=== PATIENT | female | born 1995 | race Caucasian/White ===

== ENCOUNTER → 2020-06-20 | Outpatient (REF) | payer OTHER ==
[2020-06-20 14:29] LABS: HEMATOCRIT 40.6 % (36.0-47.0); HEMOGLOBIN 13.6 g/dl (12.0-15.5); MEAN CORPUSCULAR HEMOGLOBIN 30.4 pg (27.0-33.0); MEAN CORPUSCULAR HGB CONC 33.5 g/dl (32.0-36.5); MEAN CORPUSCULAR VOLUME 90.6 fl (80.0-96.0); PLATELET COUNT, AUTOMATED 217 10^3/uL (150-450); RED BLOOD COUNT 4.48 10^6/uL (4.00-5.40); WHITE BLOOD COUNT 9.6 10^3/uL (4.0-10.0)
[2020-06-20 15:55] LABS: HEPATITIS C VIRUS ABY INDEX 0.1 INDEX (<0.8); HIV 1&2 SCREEN CENTAUR NEGATIVE (NEGATIVE)
[2020-06-20 16:14] LABS: CHLAMYDIA DNA AMPLIFICATION NEGATIVE (NEGATIVE); GC DNA AMPLIFICATION NEGATIVE (NEGATIVE)
== END ==
LOC: M PLALAB 09:38
PROVIDERS: ATTEND Advanced Practice Midwife
DX: Z34.02 Encounter for supervision of normal first pregnancy, second trimester (principal); Z3A.00 Weeks of gestation of pregnancy not specified

== ENCOUNTER → 2020-07-09 | Outpatient (CLI) | payer OTHER ==
--- NOTE | 2020-07-09 16:06 | REP ---
INDICATION: ANATOMY. COMPARISON: None TECHNIQUE: Real-time sonographic evaluation of the gravid uterus performed. FINDINGS: Estimated gestational age is18 weeks 6 days, EDC 12/04/2020. Today's measurements indicate appropriate growth. Presentation: Cephalic Placenta anterior, grade 1, without evidence of placenta previa. heart rate is recorded at 149 beats per minute. Amniotic fluid is subjectively normal. Closed cervical length is measured at 3.3 cm. Biometry chart: BPD: 45 mm, 19 weeks 4 days, 67th percentile. HC: 161 mm, 18 weeks 6 days, 51st percentile AC: 130 mm, 18 weeks 4 days, 44th percentile Femur length: 28 mm, 18 weeks 4 days, 43rd percentile HC to AC ratio: 1.23, normal range 1.07-1.26. Estimated weight: 250g, 33rd percentile. anatomy: Cranium: Grossly normal Lateral Ventricles/Choroid Plexus: Grossly normal Posterior Fossa/Cerebellum: Grossly normal Nose/lips/profile: Grossly normal Four chamber heart: Grossly normal Right ventricular outflow tract: Grossly normal Left ventricular outflow tract: Grossly normal Left-sided stomach: Grossly normal Kidneys: Grossly normal Bladder: Grossly normal Cord Insertion: Grossly normal 3 vessel cord: Grossly normal Spine: Not well seen due to position. IMPRESSION: Viable single intrauterine gestation as above. Spine is not well seen due to position. <Electronically signed by Eulalio Kan > 07/09/20 [id number]
== END ==
LOC: M WHC 14:20
PROVIDERS: ATTEND Advanced Practice Midwife
DX: Z34.02 Encounter for supervision of normal first pregnancy, second trimester (principal); Z3A.18 18 weeks gestation of pregnancy

== ENCOUNTER → 2020-08-06 | Outpatient (REF) | payer OTHER | LOC: M SFHCWAGY 13:30 | PROVIDERS: ATTEND Advanced Practice Midwife | DX: Z36.89 Encounter for other specified antenatal screening (principal); Z3A.22 22 weeks gestation of pregnancy ==

== ENCOUNTER → 2020-08-15 | Outpatient (CLI) | payer OTHER ==
--- NOTE | 2020-08-15 08:18 | REP ---
INDICATION: F/U ANATOMY COMPARISON: 07/09/2020 TECHNIQUE: Transabdominal obstetrical ultrasound with color Doppler evaluation. FINDINGS: Examination demonstrates a single live intrauterine in transverse (head to maternal right) presentation. motion is identified by technologist. Placenta is noted anterior and grade 0 without evidence for placenta previa or abruption. Amniotic fluid volume is normal. Cervix measures 3.0 cm in length and appears closed. Marginal cord insertion on the placenta noted.. Gestational age by LMP and 1st U/S 24 weeks 1 day with TWYLA 12/04/2020. Gestational age by current measurements 24 weeks 1 day with TWYLA 12/04/2020. FHR equals 138 beats per minute. Estimated weight 658 grams (38thpercentile). Anatomical assessment demonstrates normal structures including facial profile, diaphragm, stomach, kidneys/bladder, spine, and three-vessel cord. IMPRESSION: Single live intrauterine in transverse lie demonstrating appropriate interval growth. In conjunction with prior examination anatomical assessment is complete and normal. <Electronically signed by Kaleb Martins > 08/15/20 [id number]
== END ==
LOC: M WHC 07:23
PROVIDERS: ATTEND Advanced Practice Midwife
DX: Z36.89 Encounter for other specified antenatal screening (principal); Z3A.24 24 weeks gestation of pregnancy

== ENCOUNTER → 2020-09-11 | Outpatient (REF) | payer OTHER ==
[2020-09-11 13:25] LABS: HEMATOCRIT 39.9 % (36.0-47.0); MEAN CORPUSCULAR HEMOGLOBIN 31.1 pg (27.0-33.0); MEAN CORPUSCULAR HGB CONC 32.6 g/dl (32.0-36.5); MEAN CORPUSCULAR VOLUME 95.5 fl (80.0-96.0); PLATELET COUNT, AUTOMATED 199 10^3/uL (150-450); RED BLOOD COUNT 4.18 10^6/uL (4.00-5.40); WHITE BLOOD COUNT 11.6 10^3/uL (4.0-10.0)
== END ==
LOC: M PLALAB 09:40
PROVIDERS: ATTEND Advanced Practice Midwife
DX: Z36.89 Encounter for other specified antenatal screening (principal)

== ENCOUNTER → 2020-10-31 | Outpatient (CLI) | payer OTHER ==
--- NOTE | 2020-10-31 16:13 | REP ---
INDICATION: MARGINAL CORD INSERTION. COMPARISON: Comparison study August 15, 2020.. TECHNIQUE: Transabdominal and transvaginal scanning or performed. Limited study. FINDINGS: Scanning demonstrates a single living intrauterine gestation in a cephalic lie. heart rate is recorded at 158 beats per minute. Anterior grade 1 placenta is seen without evidence of previa. Amniotic fluid is subjectively normal. NORMAN is normal at 18.8 cm. Closed cervical length is 3.1 cm measured transvaginally. Placental cord insertion is now normal, no longer marginal. IMPRESSION: Limited obstetric sonography. There is no longer evidence of a marginal umbilical cord insertion on the placenta. <Electronically signed by Landon Rahman > 10/31/20 [id number]
== END ==
LOC: M WHC 14:10
PROVIDERS: ATTEND Specialist
DX: Z34.03 Encounter for supervision of normal first pregnancy, third trimester (principal)

== ENCOUNTER 2020-11-29 14:09 | Outpatient (CLI) | payer OTHER ==
[~2020-11-29] VITALS: Ht 162.6 cm; Wt 96.5 kg
[2020-11-29] VITALS (7 sets, daily range): BP systolic 118–133; BP diastolic 61–79
[2020-11-29] MEDS ORDERED: STUACAP PO (14:49)
[2020-11-29] MEDS ORDERED: ACET-907 PO (14:50)
[2020-11-29 15:20] LABS: HEMATOCRIT 36.1 % (36.0-47.0); HEMOGLOBIN 11.9 g/dl (12.0-15.5); PLATELET COUNT, AUTOMATED 176 10^3/uL (150-450); WHITE BLOOD COUNT 10.5 10^3/uL (4.0-10.0)
[2020-11-29 15:42] LABS: ALT/SGPT 19 U/L (12-78); BILIRUBIN,TOTAL 0.8 MG/DL (0.2-1.0); CREATININE FOR GFR 0.51 MG/DL (0.55-1.30); GLOMERULAR FILTRATION RATE > 60.0 (>60); LDH LACTATE DEHYDROGENASE 163 U/L (84-246); URIC ACID 5.3 MG/DL (2.6-6.0)
--- NOTE | 2020-11-29 16:22 | IPNPDOC ---
Text Note Date of Service The patient was seen on 11/29/20. NOTE Outpatient 25yo G1 TWYLA 12/04/2020. Currently 39w2d, sent from office for blood pressure workup. Denies headaches, visual disturbances, chest pain, LOF, bleeding or regular UC. Reports good movement. No distress Normotensive, afebrile Cat I tracing. Labs WNL, P/C ratio 0.22 Dr Rodriguez informed. May be discharged home. RTO Wednesday for BP check S/S preE, Labor, warnings reviewed. VS,Fishbone, I+O VS, Fishbone, I+O Laboratory Tests 11/29/20 15:09 Vital Signs Date Time Temp Pulse Resp B/P (MAP) Pulse Ox O2 Delivery O2 Flow Rate FiO2 11/29/20 15:55 103 118/79 (92) 11/29/20 14:35 98.4 18 Room Air Eliza Beltrán CNM Nov 29, 2020 16:21
== END 2020-11-29 16:25 | disposition home or self-care (01) ==
LOC: M LDO 14:09
PROVIDERS: ATTEND Advanced Practice Midwife
DX: O26.893 Other specified pregnancy related conditions, third trimester (principal); Z3A.39 39 weeks gestation of pregnancy; R03.0 Elevated blood-pressure reading, without diagnosis of hypertension
CPT/HCPCS: 36415; 59025; 82247; 82565; 82570; 83615; 84156; 84450; 84460; 84550; 85027; G0378; G0463

== ENCOUNTER 2020-12-06 14:45 | Inpatient (IN) | payer OTHER ==
[2020-12-06] VITALS (19 sets, daily range): BP systolic 113–161; BP diastolic 57–92
[~2020-12-06] VITALS: Ht 162.6 cm; Wt 96.2 kg
[~2020-12-06 14:45] MED LIST: ACET-907 PO; STUACAP PO
[2020-12-06] MEDS ORDERED: PENICILLIN G POTASSIUM IV 5 MU in D5W MINI-BAG PLUS 100 ML IV STA (15:11)
[2020-12-06] MEDS ORDERED: LACTATED RINGER'S 1000 ML IV STA (15:11)
[2020-12-06] MEDS ORDERED: OXYTOCIN DRIP 30 UNITS in IV 1 EA IV PRN (15:15)
[2020-12-06] MEDS ORDERED: METHYLERGONOVINE MALEATE 0.2 MG/ML VIAL (J2210) IM PRN (15:15)
[2020-12-06] MEDS ORDERED: LIDOCAINE 1% MDV 20ML VIAL INFIL PRN (15:15)
[2020-12-06 15:36] LABS: HEMATOCRIT 38.3 % (36.0-47.0); HEMOGLOBIN 12.7 g/dl (12.0-15.5); MEAN CORPUSCULAR HEMOGLOBIN 29.2 pg (27.0-33.0); MEAN CORPUSCULAR HGB CONC 33.2 g/dl (32.0-36.5); PLATELET COUNT, AUTOMATED 197 10^3/uL (150-450); RED BLOOD COUNT 4.35 10^6/uL (4.00-5.40); WHITE BLOOD COUNT 14.5 10^3/uL (4.0-10.0)
[2020-12-06] MEDS: LR 1,000 ML IV SCH ×2 (15:39→23:59)
[2020-12-06] MEDS ORDERED: LR 1,000 ML IV SCH (17:20)
[2020-12-06] MEDS ORDERED: OXYTOCIN DRIP 30 UNITS in IV 1 EA IV SCH (19:00)
[2020-12-06] MEDS: PENICILLIN G POTASSIUM IV 2.5 MU in IV 1 EA IV SCH ×2 (19:43→23:58)
[2020-12-06] MEDS ORDERED: FENTANYL 2MCG/ML ROPIVACAINE 0.2% IN 0.9% NACL 100ML IVBAG As Ordered ONE (21:29)
[2020-12-06] MEDS ORDERED: ePHEDrine SULFATE 25 MG/5 ML(5MG/ML) SYRINGE IV PRN (22:50)
[2020-12-06] MEDS ORDERED: ONDANSETRON 4MG/2ML VIAL IV PRN (22:50)
[2020-12-06] MEDS ORDERED: REFRIGERATOR IV KEYS XX PRN (22:50)
[2020-12-06] MEDS ORDERED: LACTATED RINGER'S 1000 ML IV PRN (22:50)
[2020-12-06] MEDS ORDERED: NALOXONE INJ 0.4MG/1ML VIAL (J2310 PER 1MG) IV PRN (22:50)
[2020-12-06] MEDS ORDERED: diphenhydrAMINE 50MG/ML VIAL (J1200) IV PRN (22:50)
[2020-12-06] MEDS ORDERED: EPIDURAL/PCA KEYS XX PRN (22:50)
[2020-12-06] MEDS ORDERED: EPIDURAL COMMENT XX SCH (22:50)
[2020-12-06] MEDS ORDERED: FENTANYL/ROPIVACAINE/NACL BAG 100 ML EPIDURAL SCH (22:50)
[2020-12-07] VITALS (13 sets, daily range): BP systolic 113–133; BP diastolic 55–80
[2020-12-07] MEDS ORDERED: ACETAMINOPHEN 500 MG TAB PO ONE (02:05)
[2020-12-07] MEDS ORDERED: DOCUSATE SODIUM 100MG CAPSULE PO PRN (02:50)
[2020-12-07] MEDS ORDERED: ANUSOL HC CREAM 30GM TOP PRN (02:50)
[2020-12-07] MEDS ORDERED: ACETAMINOPHEN 500 MG TAB PO PRN (02:50)
[2020-12-07] MEDS ORDERED: ACETAMINOPHEN TAB 650MG DOSE (2X325MG) PO PRN (02:50)
[2020-12-07] MEDS ORDERED: METHYLERGONOVINE MALEATE 0.2 MG TAB PO PRN (02:50)
[2020-12-07] MEDS ORDERED: DIBUCAINE 1% OINTMENT 30GM TOP PRN (02:50)
[2020-12-07] MEDS ORDERED: MEASLES,MUMPS,RUBELLA VACCINE INJ (MMR-II) (90707) SC SCH (02:50)
[2020-12-07] MEDS ORDERED: RHOGAM 300 MCG (1500 IU) INJ (J2790) IM SCH (02:50)
[2020-12-07] MEDS ORDERED: OXYTOCIN DRIP 30 UNITS in IV 1 EA IV SCH (02:50)
[2020-12-07] MEDS ORDERED: MOM 30ML SUSPENSION UDC PO PRN (02:50)
[2020-12-07] MEDS ORDERED: IBUPROFEN 600MG TAB PO PRN (02:50)
[2020-12-07 03:00] LABS: CORD GAS ABE A -7.9; CORD GAS HCO3 A 18.5 MEQ/L; CORD GAS O2 SAT A 42.7 %; CORD GAS PCO2 A 40.9 mmHg; CORD GAS PH A 7.273 UNITS; CORD GAS PO2 A 19.7 mmHg; CORD GAS SBC A 16.9 MEQ/L; CORD GAS TCO2 A 19.7 MEQ/L
[2020-12-07 03:02] LABS: CORD GAS ABE V -7.3; CORD GAS HCO3 V 19.1 MEQ/L; CORD GAS PCO2 V 41.7 mmHg; CORD GAS PH V 7.279 UNITS; CORD GAS PO2 V 19.6 mmHg; CORD GAS SBC V 17.3 MEQ/L; CORD GAS TCO2 V 20.4 MEQ/L
[2020-12-07] MEDS: PRENATAL VITAMINS CHEWABLE TABLET PO SCH (08:08)
[2020-12-08] MEDS: IBUPROFEN 800 MG TAB PO PRN ×2 (04:36→13:00)
[2020-12-08 06:00] VITALS: BP 120/68
[2020-12-08] MEDS: PRENATAL VITAMINS CHEWABLE TABLET PO SCH (08:58)
[2020-12-08 18:00] VITALS: BP 137/84
[2020-12-09 06:00] VITALS: BP 126/87
[2020-12-09] MEDS ORDERED: IBUP80TA PO (08:18)
[2020-12-09] MEDS ORDERED: DOK1CAP4 PO (08:18)
[2020-12-09] MEDS: PRENATAL VITAMINS CHEWABLE TABLET PO SCH (09:09)
== END 2020-12-09 10:45 | disposition home or self-care (01) | DRG 807 ==
LOC: M LDO 14:45 → M LDI 15:14 → M OBS 12-07 05:30
PROVIDERS: ADMIT Advanced Practice Midwife; ATTEND Advanced Practice Midwife
PROC: 10E0XZZ Delivery of Products of Conception, External Approach (ICD-10-PCS; principal; 2020-12-07)
PROC: 0HQ9XZZ Repair Perineum Skin, External Approach (ICD-10-PCS; 2020-12-07)
DX: O48.0 Post-term pregnancy (principal); Z37.0 Single live birth; Z3A.40 40 weeks gestation of pregnancy; O99.824 Streptococcus B carrier state complicating childbirth; O64.5XX0 Obstructed labor due to compound presentation, not applicable or unspecified; O77.0 Labor and delivery complicated by meconium in amniotic fluid; O70.0 First degree perineal laceration during delivery

== ENCOUNTER 2020-12-31 16:26 | Emergency (ER) | payer OTHER ==
[~2020-12-31] VITALS: Ht 162.6 cm; Wt 83.0 kg
[~2020-12-31 16:26] MED LIST changes: +DOK1CAP4 PO; +IBUP80TA PO
[2020-12-31 18:40] LABS: BASO % 0.4 % (0.0-1.0); EOS # 0.1 10^3/uL (0.0-0.5); EOS % 1.3 % (0.0-3.0); HEMATOCRIT 42.1 % (36.0-47.0); HEMOGLOBIN 13.5 g/dl (12.0-15.5); LYMPH # 2.5 10^3/uL (1.5-5.0); LYMPH % 26.9 % (24.0-44.0); MEAN CORPUSCULAR HEMOGLOBIN 28.6 pg (27.0-33.0); MEAN CORPUSCULAR HGB CONC 32.1 g/dl (32.0-36.5); MEAN CORPUSCULAR VOLUME 89.2 fl (80.0-96.0); MONO # 0.7 10^3/uL (0.0-0.8); MONO % 8.1 % (2.0-8.0); NEUTROPHILS # 5.7 10^3/uL (1.5-8.5); PLATELET COUNT, AUTOMATED 250 10^3/uL (150-450); RED BLOOD COUNT 4.72 10^6/uL (4.00-5.40); WHITE BLOOD COUNT 9.1 10^3/uL (4.0-10.0)
[2020-12-31] MEDS ORDERED: MAALOX 30 ML SUSP *UDC PO ONE (18:40)
[2020-12-31] MEDS ORDERED: LIDOCAINE VISCOUS 2% SOLN 15ML UDC SS ONE (18:40)
[2020-12-31 19:02] LABS: ALBUMIN 3.6 GM/DL (3.2-5.2); ALT/SGPT 298 U/L (12-78); BILIRUBIN,DIRECT 1.2 MG/DL (0.0-0.2); BILIRUBIN,TOTAL 2.5 MG/DL (0.2-1.0); BLOOD UREA NITROGEN 12 MG/DL (7-18); CALCIUM LEVEL 9.8 MG/DL (8.5-10.1); CARBON DIOXIDE LEVEL 27 MEQ/L (21-32); CHLORIDE LEVEL 108 MEQ/L (98-107); CREATININE FOR GFR 0.76 MG/DL (0.55-1.30); GLOMERULAR FILTRATION RATE > 60.0 (>60); GLUCOSE, FASTING 92 MG/DL (70-100); LIPASE 133 U/L (73-393); SODIUM LEVEL 138 MEQ/L (136-145); TOTAL PROTEIN 6.7 GM/DL (6.4-8.2)
[2020-12-31 19:22] LABS: CK-MB VALUE MASS < 1.0 NG/ML (<3.6); CPK CREATINE PHOSPHOKINASE 63 U/L (26-192); MB/CK RELATIVE INDEX 1.59 (< OR =4); TROPONIN I 0.04 NG/ML (< 0.10)
--- NOTE | 2020-12-31 19:45 | REP ---
INDICATION: biliary colic COMPARISON: None. TECHNIQUE: Real time faye scale ultrasound examination using curved array transducer. FINDINGS: Liver and pancreas are normal in contour, size, and echogenicity without focal hepatic or obvious pancreatic lesions identified. The gallbladder demonstrates multiple mobile gallstones without wall thickening, or pericholecystic fluid. No biliary ductal dilatation is appreciated and the common bile duct measures 6.2 mm diameter. Right kidney is normal in reniform shape without hydronephrosis and measures 11.8 x 5.3 x 4.5 cm. No ascites in the visualized right upper quadrant. IMPRESSION: Cholelithiasis without sonographic evidence for acute cholecystitis. <Electronically signed by Kaleb Martins > 12/31/201941
[2020-12-31 20:53] LABS: MONO REFLEX EBV COMP NEGATIVE (NEGATIVE)
[2020-12-31 20:57] LABS: HEPATITIS B SURFACE ANTIGEN NEGATIVE (NEGATIVE)
[2020-12-31 21:24] LABS: HEPATITIS B CORE ANTIBODY IGM NEGATIVE (NEGATIVE); HEPATITIS C VIRUS ABY INDEX < 0.0 INDEX (<0.8)
[2020-12-31 21:27] LABS: HEPATITIS A ANTIBODY IGM NEGATIVE (NEGATIVE)
--- NOTE | 2020-12-31 21:33 | ECGEPIP ---
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
[2020-12-31 21:56] VITALS: BP 128/76
[2021-01-02 14:09] LABS: EBV AB TO NUCLEAR ANTIGEN >600.0 U/mL (0.0-17.9); EBV VIRAL CAPSID AG IgG >600.0 U/mL (0.0-17.9); EBV VIRAL CAPSID AG IgM <36.0 U/mL (0.0-35.9)
== END 2020-12-31 21:58 | disposition home or self-care (01) ==
LOC: M ED 16:26
DX: K80.70 Calculus of gallbladder and bile duct without cholecystitis without obstruction (principal); J45.909 Unspecified asthma, uncomplicated

== ENCOUNTER 2021-01-01 12:54 | Emergency (ER) | payer OTHER ==
[~2021-01-01] VITALS: Ht 162.6 cm; Wt 84.1 kg
[2021-01-01 16:09] LABS: BASO # 0.1 10^3/uL (0.0-0.2); BASO % 0.6 % (0.0-1.0); EOS # 0.3 10^3/uL (0.0-0.5); EOS % 2.4 % (0.0-3.0); HEMATOCRIT 43.4 % (36.0-47.0); HEMOGLOBIN 13.8 g/dl (12.0-15.5); LYMPH # 2.4 10^3/uL (1.5-5.0); LYMPH % 22.9 % (24.0-44.0); MEAN CORPUSCULAR HEMOGLOBIN 28.6 pg (27.0-33.0); MEAN CORPUSCULAR HGB CONC 31.8 g/dl (32.0-36.5); MEAN CORPUSCULAR VOLUME 89.9 fl (80.0-96.0); MONO # 0.6 10^3/uL (0.0-0.8); MONO % 5.6 % (2.0-8.0); NEUTROPHILS % 68.3 % (36.0-66.0); PLATELET COUNT, AUTOMATED 247 10^3/uL (150-450); RED BLOOD COUNT 4.83 10^6/uL (4.00-5.40); WHITE BLOOD COUNT 10.3 10^3/uL (4.0-10.0)
[2021-01-01 16:39] LABS: ALBUMIN 3.7 GM/DL (3.2-5.2); ALT/SGPT 230 U/L (12-78); BILIRUBIN,DIRECT 0.6 MG/DL (0.0-0.2); BILIRUBIN,TOTAL 1.9 MG/DL (0.2-1.0); BLOOD UREA NITROGEN 9 MG/DL (7-18); CARBON DIOXIDE LEVEL 27 MEQ/L (21-32); CHLORIDE LEVEL 109 MEQ/L (98-107); CREATININE FOR GFR 0.73 MG/DL (0.55-1.30); GLOMERULAR FILTRATION RATE > 60.0 (>60); GLUCOSE, FASTING 77 MG/DL (70-100); POTASSIUM SERUM 4.8 MEQ/L (3.5-5.1); SODIUM LEVEL 142 MEQ/L (136-145)
[2021-01-01 17:12] VITALS: BP 111/70
== END 2021-01-01 17:14 | disposition home or self-care (01) ==
LOC: M ED 12:54
DX: K80.70 Calculus of gallbladder and bile duct without cholecystitis without obstruction (principal)